=== PATIENT | female | born 1950 | race Caucasian/White ===

== ENCOUNTER → 2020-03-28 | Outpatient (CLI) | payer MEDICARE ==
[~2020-03-28] MED LIST: OMNIPAQUE 350 MG/ML, 100ML BOTTLE ONE
== END | disposition home or self-care (01) ==
LOC: CFH 13:00
PROVIDERS: ATTEND Surgery
DX: I65.23 Occlusion and stenosis of bilateral carotid arteries (principal); E78.5 Hyperlipidemia, unspecified; I45.10 Unspecified right bundle-branch block; E11.9 Type 2 diabetes mellitus without complications; E78.1 Pure hyperglyceridemia
CPT/HCPCS: 70496; 70498; 82565; Q9967

== ENCOUNTER 2020-05-03 10:44 | Outpatient (CLI) | payer MEDICARE ==
[2020-05-03] MEDS ORDERED: INUL1TAB4 PO (11:38)
[2020-05-03] MEDS ORDERED: SAXA2.5T PO (11:38)
[2020-05-03] MEDS ORDERED: ROSU40TA PO (11:38)
[2020-05-03] MEDS ORDERED: MULT-90 PO (11:38)
[2020-05-03] MEDS ORDERED: CLOP75TA PO (11:38)
[2020-05-03] MEDS ORDERED: INSU100I28 SC (11:38)
[2020-05-03] MEDS ORDERED: novolog SC (11:38)
[2020-05-03] MEDS ORDERED: ASPI-496 PO (11:38)
[2020-05-03 11:54] LABS: BASOPHILS # (AUTO) 0.04 x10^3/uL (0-0.1); BASOPHILS % (AUTO) 1 % (0-1); EOSINOPHILS # (AUTO) 0.14 x10^3/uL (0-0.4); EOSINOPHILS % (AUTO) 3 % (1-7); LYMPHOCYTES # (AUTO) 1.18 x10^3/uL (1-3.4); LYMPHOCYTES % (AUTO) 22 % (22-44); MD NO; MEAN CORPUSCULAR HEMOGLOBIN 28.3 pg (27.0-34.8); MEAN CORPUSCULAR VOLUME 85.8 fL (80-100); MEAN PLATELET VOLUME 7.6 fL (7.4-10.4); MONOCYTES # (AUTO) 0.43 x10^3/uL (0.2-0.8); MONOCYTES % (AUTO) 8 % (2-9); NEUTROPHILS # (AUTO) 3.53 x10^3/uL (1.8-6.8); NEUTROPHILS % (AUTO) 66 % (42-75); PLATELET COUNT 288 x10^3/uL (130-400); RED BLOOD COUNT 4.61 x10^6/uL (3.82-5.3)
[2020-05-03 12:02] LABS: ALBUMIN 3.9 g/dL (3.4-5.0); ANION GAP 3 mmol/L (5-15); CALCIUM 9.3 mg/dL (8.5-10.1); CHLORIDE 111 mmol/L (98-107)
[2020-05-03 12:10] LABS: ALANINE AMINOTRANSFERASE 30 U/L (12-78); ALKALINE PHOSPHATASE 83 U/L (45-117); BILIRUBIN,TOTAL 0.4 mg/dL (0.2-1.0); CREATININE 0.95 mg/dL (0.55-1.02); TOTAL PROTEIN 7.5 g/dL (6.4-8.2)
== END 2020-05-03 23:59 | disposition home or self-care (01) ==
LOC: STAR 10:44
PROVIDERS: ATTEND Surgery
DX: Z01.818 Encounter for other preprocedural examination (principal); Z11.59 Encounter for screening for other viral diseases; I45.10 Unspecified right bundle-branch block
CPT/HCPCS: 36415; 80053; 85025; 87635; 93005

== ENCOUNTER 2020-05-07 07:43 | Day surgery (SDC) | payer MEDICARE ==
[~2020-05-07] VITALS: Ht 157.5 cm; Wt 59.0 kg
[~2020-05-07 07:43] MED LIST changes: +ASPI-496 PO; +CLOP75TA PO; +INSU100I28 SC; +INUL1TAB4 PO; +MULT-90 PO; -OMNIPAQUE 350 MG/ML, 100ML BOTTLE ONE; +ROSU40TA PO; +SAXA2.5T PO; +SODIUM CHLORIDE 0.9% 1,000 ML IV SCH; +novolog SC
[2020-05-07 08:13] VITALS: BP 122/57
[2020-05-07] MEDS ORDERED: BIVALIRUDIN 250 MG ONE (08:33)
[2020-05-07] MEDS ORDERED: FENTANYL PF 100 MCG/2ML ONE ×2 (10:02)
[2020-05-07] MEDS ORDERED: MIDAZOLAM 1 MG/ML, 5ML ONE (10:02)
[2020-05-07] MEDS ORDERED: FLUMAZENIL 0.1 MG/1 ML, 5ML ONE (10:02)
[2020-05-07] MEDS ORDERED: NALOXONE 1 MG/ML, 2ML ONE (10:03)
[2020-05-07] MEDS ORDERED: PROTAMINE SULFATE 10 MG/ML, 25ML ONE (10:03)
[2020-05-07] MEDS ORDERED: HEPARIN 1,000 UNITS/ML, 10ML ONE (10:03)
[2020-05-07] MEDS ORDERED: CLOPIDOGREL 75 MG TABLET ONE (10:13)
[2020-05-07] MEDS ORDERED: LIDOCAINE 1%, 10ML ONE (10:16)
[2020-05-07] MEDS ORDERED: ATROPINE SYRINGE 0.1 MG/ML, 10ML ONE (10:23)
== END 2020-05-07 13:20 | disposition home or self-care (01) ==
LOC: ORIP 07:43 → UNDOADMIN 07:43 → OUT 07:43 → EDSTATUS 09:00 → UNDODISIN 13:20 → OUT 13:20
PROVIDERS: ATTEND Surgery
DX: I65.23 Occlusion and stenosis of bilateral carotid arteries (principal); I77.1 Stricture of artery; E11.9 Type 2 diabetes mellitus without complications; E78.5 Hyperlipidemia, unspecified; I45.10 Unspecified right bundle-branch block; F17.210 Nicotine dependence, cigarettes, uncomplicated; Z79.02 Long term (current) use of antithrombotics/antiplatelets; Z79.4 Long term (current) use of insulin; Z79.82 Long term (current) use of aspirin; Z79.899 Other long term (current) drug therapy; Z85.810 Personal history of malignant neoplasm of tongue; Z88.2 Allergy status to sulfonamides; Z88.8 Allergy status to other drugs, medicaments and biological substances; Z92.21 Personal history of antineoplastic chemotherapy; Z98.51 Tubal ligation status; Z98.890 Other specified postprocedural states
CPT/HCPCS: 36223; 85347; 99156; 99157; C1751; C1760; C1769; C1894; J1644; J2250; J2720; J3010; J7030; 36221; 37215; J0461; J0583; J2310

== ENCOUNTER → 2020-09-06 | Outpatient (CLI) | payer MEDICARE ==
[~2020-09-06] MED LIST changes: +BISA5TAB5 PO; +CETI-158 PO; +DULA0.75 SC; +FOLI1TAB47 PO; -SODIUM CHLORIDE 0.9% 1,000 ML IV SCH; +[UNRECOGNIZED DRUG - OTHER] PO; +[UNRECOGNIZED DRUG - OTHER] PO
[2020-09-06 14:33] LABS: BASOPHILS % (AUTO) 1 % (0-1); EOSINOPHILS % (AUTO) 2 % (1-7); LYMPHOCYTES % (AUTO) 19 % (22-44); MEAN CORPUSCULAR HEMOGLOBIN 28.1 pg (27.0-34.8); MEAN CORPUSCULAR HGB CONC 33.3 g/dL (32.4-35.8); MEAN PLATELET VOLUME 7.2 fL (7.4-10.4); MONOCYTES % (AUTO) 7 % (2-9); NEUTROPHILS % (AUTO) 70 % (42-75); PLATELET COUNT 297 x10^3/uL (130-400); RED BLOOD COUNT 4.88 x10^6/uL (3.82-5.3); RED CELL DISTRIBUTION WIDTH 15.8 % (9.6-15.2)
[2020-09-06 14:34] LABS: MD NO
[2020-09-06 14:35] LABS: ANION GAP 5 mmol/L (5-15); CALCIUM 9.5 mg/dL (8.5-10.1); CHLORIDE 109 mmol/L (98-107); CREATININE 1.27 mg/dL (0.55-1.02)
== END | disposition home or self-care (01) ==
LOC: STAR 13:29
PROVIDERS: ATTEND Surgery
DX: Z01.818 Encounter for other preprocedural examination (principal)
CPT/HCPCS: 36415; 80048; 85025

== ENCOUNTER → 2021-02-04 | Outpatient (CLI) | payer MEDICARE ==
[~2021-02-04] MED LIST changes: +DIPH-628 PO; +INSU100I18 SQ; +SENN1TAB67 PO; +SERT50TA28 PO; +SITA100T PO; +[UNRECOGNIZED DRUG - OTHER] PO
[2021-02-04 14:36] LABS: BASOPHILS % (AUTO) 1 % (0-1); EOSINOPHILS % (AUTO) 2 % (1-7); LYMPHOCYTES % (AUTO) 18 % (22-44); MEAN CORPUSCULAR HEMOGLOBIN 27.9 pg (27.0-34.8); MEAN CORPUSCULAR HGB CONC 33.3 g/dL (32.4-35.8); MEAN PLATELET VOLUME 7.3 fL (7.4-10.4); MONOCYTES % (AUTO) 9 % (2-9); NEUTROPHILS % (AUTO) 70 % (42-75); PLATELET COUNT 279 x10^3/uL (130-400); RED BLOOD COUNT 4.67 x10^6/uL (3.82-5.3); RED CELL DISTRIBUTION WIDTH 15.6 % (9.6-15.2)
[2021-02-04 14:37] LABS: MD NO
[2021-02-04 14:43] LABS: ALANINE AMINOTRANSFERASE 28 U/L (12-78); ALBUMIN 3.8 g/dL (3.4-5.0); ANION GAP 4 mmol/L (5-15); CHLORIDE 107 mmol/L (98-107); CREATININE 1.14 mg/dL (0.55-1.02)
[2021-02-04 14:45] LABS: ALKALINE PHOSPHATASE 70 U/L (45-117); BILIRUBIN,TOTAL 0.3 mg/dL (0.2-1.0); TOTAL PROTEIN 7.4 g/dL (6.4-8.2)
== END | disposition home or self-care (01) ==
LOC: STAR 12:53
PROVIDERS: ATTEND Surgery
DX: Z01.812 Encounter for preprocedural laboratory examination (principal); Z01.818 Encounter for other preprocedural examination; I25.10 Atherosclerotic heart disease of native coronary artery without angina pectoris; I45.10 Unspecified right bundle-branch block; Z20.822 Contact with and (suspected) exposure to COVID-19
CPT/HCPCS: 36415; 71046; 80053; 85025; 93005; U0003; U0005